=== PATIENT | male | born 1975 | race Caucasian/White ===

== ENCOUNTER 2017-06-17 15:19 | Emergency (ER) | payer OTHER ==
[~2017-06-17] VITALS: Ht 167.6 cm; Wt 124.9 kg
[~2017-06-17 15:19] MED LIST: ABI10 PO; LISI10TA11 PO; METF500T2 PO
[2017-06-17 16:02] VITALS: BP 128/68
--- NOTE | 2017-06-17 16:05 | NUR ---
PT AMBULATES BACK TO THE LOBBY
--- NOTE | 2017-06-17 17:37 | NUR ---
PATIENT AMB. TO CHAIR #E
--- NOTE | 2017-06-17 18:00 | NUR ---
PATIENT BIB MOTHER WITH C/O BL FOOT PAIN 10/; SEEN ON 05/31/2017 FOR ATHLETES FOOT HX; DM RX; AMOXICILLIN, IBUPROFEN, HYDROXYCINE, METFORMIN GLIPISIDE, ABILIFY . DENIES N/V/D; SKIN IS PINK/WARM/DRY; AAOX4 WITH EVEN AND STEADY GAIT; BROCHI LUNG SOUNDS, COUGHING NOTED; HR EVEN AND REGULAR; PT DENIES ANY FEVER, CP, SOB, AT THIS TIME; PATIENT STATES PAIN OF 10/10 AT THIS TIME; VSS; PATIENT POSITIONED FOR COMFORT; HOB ELEVATED; BEDRAILS UP X2; BED DOWN. ER MD MADE AWARE OF PT STATUS.
[2017-06-17] MEDS ORDERED: GABAPENTIN 300 MG CAP PO ONE (18:50)
[2017-06-17] MEDS ORDERED: KETOROLAC 30 MG/ML VIAL IM ONE (18:50)
[2017-06-17] MEDS ORDERED: diphenhydrAMINE 50 MG CAP PO ONE (18:50)
[2017-06-17] MEDS ORDERED: TERBINAFINE 1% 15 GM TUBE TP SCH (18:50)
[2017-06-17] MEDS ORDERED: oxyCODONE/APAP 5/325 MG 1 TAB TAB PO ONE (19:00)
--- NOTE | 2017-06-17 19:10 | NUR ---
REPORT GIVEN TO АНДРЕЙ ARNOLD FOR CONTINUE OF CARE, PT IS IN STABLE CONDITION AT THIS TIME.
[2017-06-17] MEDS ORDERED: GABAPENTIN 100 MG CAP ONE (19:15)
--- NOTE | 2017-06-17 19:30 | NUR ---
MARYANN NOT AVAILABLE. DR. MARIEE MADE AWARE.
[2017-06-17 19:59] VITALS: BP 120/88
--- NOTE | 2017-06-17 19:59 | NUR ---
Patient discharged with v/s stable. Written and verbal after care instructions given and explained. Patient alert, oriented and verbalized understanding of instructions. Ambulatory with steady gait. All questions addressed prior to discharge. ID band removed. Patient advised to follow up with PMD. Rx of DIPHENHYDRAMINE HYDROCHLORIDE, GABAPENTIN, LAMISIL 1% ATHLETES FOOT TOPICAL CREAM, LAMISIL 250MG TABLET, PERCOCET 5MG-325MG given. Patient educated on indication of medication including possible reaction and side effects. Opportunity to ask questions provided and answered.
== END 2017-06-17 19:59 | disposition home or self-care (01) ==
LOC: MED 15:19
DX: B35.3 Tinea pedis (principal); E11.9 Type 2 diabetes mellitus without complications; I10 Essential (primary) hypertension; Z79.899 Other long term (current) drug therapy; Z88.8 Allergy status to other drugs, medicaments and biological substances
CPT/HCPCS: 96372; 99284; J1885; Q0163

== ENCOUNTER 2017-07-01 19:08 | Emergency (ER) | payer OTHER ==
[~2017-07-01] VITALS: Ht 167.6 cm; Wt 123.8 kg
[2017-07-01 19:26] VITALS: BP 135/69
--- NOTE | 2017-07-01 19:40 | NUR ---
PT CAME IN C/O MIGRAINE HEADACHE X 1 WEEK WORSENING TODAY 01/29. ALSO C/O COUPHHING WITH PHLEGM X 2 WEEKS. STATED VOMITTED X1 2 DAYS AGAO. DENYING TAKING ANY MEDS FOR IT TODAY. RR EVEN AND UNLABORED. BILATERAL LUNGS SOUND CLEAR. PERRL. AFEBRILE. ER MD MADE AWARE.
--- NOTE | 2017-07-01 19:40 | NUR ---
PATIENT AMBULATED TO ER CHAIR B
--- NOTE | 2017-07-01 20:13 | NUR ---
PT C/O MIGRAINE PAIN STILL 01/29. DR. MARIEE MADE AWARE.
--- NOTE | 2017-07-01 20:19 | NUR ---
DR. MARIEE EVALUATING THE PT AT THIS TIME.
--- NOTE | 2017-07-01 20:25 | NUR ---
PT NOTICED PT CURSING AND TALKING INAPPROPRIATE COMMENTS AND CHOICE OF WORDS. APPROACHED PT IF EVERYTHING IS OK AND THERE WAS NO ONE OTHER THAN HIS MOTHER NEXT TO HIM. HE SAID HE DENIES OF TALKING INAPPROPRIATELY. SOON THE NURSE TURNED AWAY, HE STARTED TALKING INAPPROPRIATELY. ENCOURAGE PT NOT TO TALK INAPPROPRIATELY. PT CONTINUES DENYING. ASKED MOTHER TO HELP TO CALM DOWN WELL. WILL CONTINUE TO MONITOR.
--- NOTE | 2017-07-01 20:40 | NUR ---
PT CONTINUES TO TALK INAPPROPRIATELY "FUCKING BITHCES. DUMB ASS. TAKING FUCKING TOO LONG." DR MARIEE APPROACHED PT THAT HE WOULD DISCHARGE THE PT. PT THREATENS THAT THE WILL CALL THE POLICE AND CONTINUES TO USE INAPPROPRIATE LANGUAGE AND DEROGATORY COMMENTS. Addendum: 07/01/17 at 2051 by [email or web address] PT CONTINUES TO TALK INAPPROPRIATELY "FUCKING BITHCES. DUMB ASS. TAKING FUCKING TOO LONG." DR MARIEE APPROACHED PT THAT HE WOULD DISCHARGE THE PT. PT THREATENS THAT HE WILL CALL THE POLICE AND CONTINUES TO USE INAPPROPRIATE LANGUAGE AND DEROGATORY COMMENTS.
[2017-07-01 20:43] VITALS: BP 135/69
--- NOTE | 2017-07-01 20:43 | NUR ---
PT LEFT ER WITHOUT PAPER WORK AT THIS TIME.
== END 2017-07-01 20:43 | disposition home or self-care (01) ==
LOC: MED 19:08
DX: K08.89 Other specified disorders of teeth and supporting structures (principal); R51 Headache; E11.9 Type 2 diabetes mellitus without complications; I10 Essential (primary) hypertension; E78.5 Hyperlipidemia, unspecified; Z79.84 Long term (current) use of oral hypoglycemic drugs; Z79.899 Other long term (current) drug therapy; Z88.8 Allergy status to other drugs, medicaments and biological substances
CPT/HCPCS: 82948; 99283

== ENCOUNTER 2018-06-20 12:55 | Emergency (ER) | payer OTHER ==
[~2018-06-20] VITALS: Ht 172.7 cm; Wt 128.8 kg
[2018-06-20 13:08] VITALS: BP 125/73
--- NOTE | 2018-06-20 13:16 | NUR ---
PATIENT AMBULATED TO BED 8 AT THIS TIME.
[2018-06-20] MEDS ORDERED: KETOROLAC 60 MG/2 ML VIAL IM ONE (14:00)
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
--- NOTE | 2018-06-20 14:27 | NUR ---
Patient discharged with v/s stable. Written and verbal after care instructions given and explained. Patient alert, oriented and verbalized understanding of instructions. Ambulatory with steady gait. All questions addressed prior to discharge. ID band removed. Patient advised to follow up with PMD. Rx of NORCO AND MOTRIN given. Patient educated on indication of medication including possible reaction and side effects. Opportunity to ask questions provided and answered.
== END 2018-06-20 14:27 | disposition home or self-care (01) ==
LOC: MED 12:55
DX: M54.5 Low back pain (principal); E11.9 Type 2 diabetes mellitus without complications; I10 Essential (primary) hypertension; F17.210 Nicotine dependence, cigarettes, uncomplicated; Z79.84 Long term (current) use of oral hypoglycemic drugs; Z79.899 Other long term (current) drug therapy; Z88.8 Allergy status to other drugs, medicaments and biological substances; Z98.890 Other specified postprocedural states
CPT/HCPCS: 96372; 99283; J1885

== ENCOUNTER 2018-09-20 05:26 | Emergency (ER) | payer OTHER ==
[2018-09-20] MEDS ORDERED: KETOROLAC 30 MG/ML VIAL ONE (06:18)
--- NOTE | 2018-09-20 08:38 | NUR ---
BACK FROM X RAY VIA W/C, ACCOMPANIED BY GAS PRODUCER.
--- NOTE | 2018-09-20 09:02 | NUR ---
MOTHER AT BEDSIDE.
[2018-09-20 09:21] LABS: ANION GAP 12.4 (8-16); CARBON DIOXIDE 25.4 mmol/L (21-32); POTASSIUM 3.8 mmol/L (3.5-5.1)
[2018-09-20 09:22] LABS: ALBUMIN 3.6 g/dL (3.4-5.0); TOTAL BILIRUBIN 0.4 mg/dL (0.0-1.0)
[2018-09-20 09:44] LABS: HEMOGLOBIN 14.8 g/dL (12.0-18.0); MEAN CORPUSCULAR HEMOGLOBIN 31 pg (27-31); MEAN CORPUSCULAR HGB CONC 34 g/dL (33-37); MEAN CORPUSCULAR VOLUME 90.6 fL (80-94); RED BLOOD CELL COUNT(AUTO) 4.85 MIL/uL (4.20-6.10); RED CELL DISTRIBUTION WIDTH 14.2 % (11.6-13.7); WHITE BLOOD COUNT (AUTO) 15.8 K/uL (4.8-10.8)
[2018-09-20 09:45] LABS: BASOPHILS % (AUTO) 1.2 % (0.0-2.0); EOSINOPHILS # (AUTO) 0.1 K/uL (0-0.4); EOSINOPHILS % (AUTO) 0.7 % (0.0-4.0); LYMPHOCYTES % (AUTO) 44.1 % (20.5-51.1); MONOCYTES # (AUTO) 1.4 K/uL (0.8-1.0); MONOCYTES % (AUTO) 8.9 % (1.7-9.3); NEUTROPHILS # (AUTO) 7.1 K/uL (1.8-7.7); NEUTROPHILS % (AUTO) 45.1 % (42.2-75.2); PLATELET COUNT (AUTO) 252 K/uL (140-450)
[2018-09-20 09:46] LABS: BASOPHILS # (AUTO) 0.2 K/uL (0.00-0.22)
[2018-09-20 10:07] VITALS: BP 114/47
--- NOTE | 2018-09-20 10:07 | NUR ---
Patient discharged with v/s stable. Written and verbal after care instructions given and explained. Patient alert, oriented and verbalized understanding of instructions. Ambulatory with steady gait. All questions addressed prior to discharge. ID band removed. Patient advised to follow up with PMD. Rx of LACTULOSE & TRAMADOL given. Patient educated on indication of medication including possible reaction and side effects. Opportunity to ask questions provided and answered.
== END 2018-09-20 10:07 | disposition home or self-care (01) ==
LOC: MED 05:26
DX: R10.9 Unspecified abdominal pain (principal); R59.1 Generalized enlarged lymph nodes; F17.200 Nicotine dependence, unspecified, uncomplicated; E11.9 Type 2 diabetes mellitus without complications; I10 Essential (primary) hypertension; Z79.84 Long term (current) use of oral hypoglycemic drugs; Z79.899 Other long term (current) drug therapy; Z88.8 Allergy status to other drugs, medicaments and biological substances; Z98.890 Other specified postprocedural states
CPT/HCPCS: 36415; 74176; 80053; 83690; 85025; 99284; J1885

== ENCOUNTER 2018-10-22 17:54 | Emergency (ER) | payer OTHER ==
[~2018-10-22] VITALS: Ht 167.6 cm; Wt 122.5 kg
--- NOTE | 2018-10-22 18:05 | NUR ---
Patient ambulated to bed 11
[2018-10-22 18:07] VITALS: BP 123/74
--- NOTE | 2018-10-22 18:10 | NUR ---
PT PRESENTS TO ED WITH C/O TOOTHACHE X 1 MONTH. ALLERGY: HALOPERIDOL MED HX: DM II
[2018-10-22 19:00] VITALS: BP 123/74
--- NOTE | 2018-10-22 19:00 | NUR ---
Patient discharged with v/s stable. Written and verbal after care instructions given and explained. Patient alert, oriented and verbalized understanding of instructions. Ambulatory with steady gait. All questions addressed prior to discharge. ID band removed. Patient advised to follow up with PMD. Rx of [place], Naprosyn, Penicillin given. Patient educated on indication of medication including possible reaction and side effects. Opportunity to ask questions provided and answered.
== END 2018-10-22 19:00 | disposition home or self-care (01) ==
LOC: MED 17:54
DX: K04.7 Periapical abscess without sinus (principal); E11.9 Type 2 diabetes mellitus without complications; I10 Essential (primary) hypertension; F17.210 Nicotine dependence, cigarettes, uncomplicated; Z71.6 Tobacco abuse counseling; Z79.84 Long term (current) use of oral hypoglycemic drugs; Z79.899 Other long term (current) drug therapy; Z88.8 Allergy status to other drugs, medicaments and biological substances
CPT/HCPCS: 99283

== ENCOUNTER 2019-01-22 16:33 | Emergency (ER) | payer OTHER ==
[~2019-01-22] VITALS: Ht 167.6 cm; Wt 127.0 kg
[2019-01-22 16:39] VITALS: BP 141/83
--- NOTE | 2019-01-22 17:00 | NUR ---
43/M PRESENTS TO ED, C/O L UPPER MOLAR TOOTH RADIATING TO L TEMPORAL HEAD, X2 YEARS BUT WORSENING TODAY. SOME L UPPER MOLAR TEETH MISSING (WAS REMOVED 2 YEARS AGO), NOTED WITH CAVITIES, NO OBVIOUS ABSCESS OR DISCHARGE NOTED. PT AWAKE AND ALERT, SKIN NORMAL WARM AND DRY, RR EVEN AND UNLABORED. HX DM, HTN; CIGARETTE-SMOKER; DENIES ILLICIT DRUG USE; OTC MOTRIN WITHOUT RELIEF
--- NOTE | 2019-01-22 17:00 | NUR ---
DR PETIT AT BEDSIDE
[2019-01-22] MEDS ORDERED: KETOROLAC 30 MG/ML VIAL IM ONE (17:05)
[2019-01-22] MEDS ORDERED: SUMAtriptan 25 MG TAB PO ONE (17:50)
[2019-01-22 18:14] VITALS: BP 141/100
--- NOTE | 2019-01-22 18:14 | NUR ---
Patient discharged with v/s stable. Written and verbal after care instructions given and explained. Patient alert, oriented and verbalized understanding of instructions. Ambulatory with steady gait. All questions addressed prior to discharge. ID band removed. Patient advised to follow up with PMD. Rx of IMITREX, IBUPROFEN given. Patient educated on indication of medication including possible reaction and side effects. Opportunity to ask questions provided and answered.
== END 2019-01-22 18:14 | disposition home or self-care (01) ==
LOC: MED 16:33
DX: R51 Headache (principal); E11.9 Type 2 diabetes mellitus without complications; I10 Essential (primary) hypertension; Z79.84 Long term (current) use of oral hypoglycemic drugs; Z79.899 Other long term (current) drug therapy; Z88.5 Allergy status to narcotic agent
CPT/HCPCS: 82948; 96372; 99283; J1885

== ENCOUNTER 2019-02-12 09:30 | Emergency (ER) | payer OTHER ==
[~2019-02-12] VITALS: Ht 165.1 cm; Wt 122.5 kg
[2019-02-12 09:42] VITALS: BP 140/84
--- NOTE | 2019-02-12 09:43 | NUR ---
PT TAKEN TO BED 8.
--- NOTE | 2019-02-12 09:43 | NUR ---
PT ARRIVED TO ED FOR Glipizide MED REFILL. PT SAID HE RAN OUT TODAY ADN TRIED TO GO TO PHARM TO GET REFILL BUT COULDNT BECAUSE HE RAN OUT OF REFILLS. PT IS A&O X4. VSS. ALLERGIES: HALDOL
[2019-02-12] MEDS ORDERED: KETOROLAC 60 MG/2 ML VIAL IM ONE (10:55)
[2019-02-12 12:21] VITALS: BP 140/84
--- NOTE | 2019-02-12 12:21 | NUR ---
Patient discharged with v/s stable. Written and verbal after care instructions given and explained. Patient alert, oriented and verbalized understanding of instructions. Ambulatory with steady gait. All questions addressed prior to discharge. ID band removed. Patient advised to follow up with PMD. Rx of Glipizide, CYCLOBENZAPRINE, CLOTRIMAZOLE given. Patient educated on indication of medication including possible reaction and side effects. Opportunity to ask questions provided and answered.
== END 2019-02-12 12:21 | disposition home or self-care (01) ==
LOC: MED 09:30
DX: E11.9 Type 2 diabetes mellitus without complications (principal); B35.3 Tinea pedis; M54.9 Dorsalgia, unspecified; G89.29 Other chronic pain; I10 Essential (primary) hypertension; Z79.899 Other long term (current) drug therapy; Z88.8 Allergy status to other drugs, medicaments and biological substances
CPT/HCPCS: 82948; 96372; 99283; J1885

== ENCOUNTER 2019-03-05 14:32 | Emergency (ER) | payer OTHER ==
[~2019-03-05] VITALS: Ht 167.6 cm; Wt 123.5 kg
[2019-03-05 14:36] VITALS: BP 153/94
--- NOTE | 2019-03-05 14:55 | NUR ---
Assumed patient care, nursing assessment completed. Patient endorsing chronic low back pain, states that current pain medication regimen is not working for patient, states that I need something stronger.
[2019-03-05] MEDS ORDERED: KETOROLAC 60 MG/2 ML VIAL IM ONE (15:20)
[2019-03-05 16:04] VITALS: BP 144/90
--- NOTE | 2019-03-05 16:05 | NUR ---
Dispo and medical decision making, DC home with instructions regarding chronic low back pain and prescriptions for pain meds. Patient understanding instructions accordingly, VS WNL, pain symptoms improved. DC home ambulatory.
== END 2019-03-05 16:05 | disposition home or self-care (01) ==
LOC: MED 14:32
DX: G89.29 Other chronic pain (principal); M54.2 Cervicalgia; M54.9 Dorsalgia, unspecified; E11.9 Type 2 diabetes mellitus without complications; I10 Essential (primary) hypertension; Z79.84 Long term (current) use of oral hypoglycemic drugs; Z79.899 Other long term (current) drug therapy; Z88.5 Allergy status to narcotic agent
CPT/HCPCS: 96372; 99283; J1885